=== PATIENT | male | born 1995 | race Two or more races ===

== ENCOUNTER 2021-09-19 20:28 | Emergency (ER) | payer MEDICAID ==
[~2021-09-19] VITALS: Ht 165.1 cm; Wt 59.0 kg
[2021-09-19 21:26] VITALS: BP 124/75
[2021-09-20] MEDS ORDERED: LIDOCAINE 1% HCL (LOCAL ANESTH.) INJ 20ML MDV ID ONE (00:30)
[2021-09-20] MEDS ORDERED: CEPH-509 PO (01:12)
== END 2021-09-20 01:28 | disposition home or self-care (01) ==
LOC: ER 20:28
DX: S61.212A Laceration without foreign body of right middle finger without damage to nail, initial encounter (principal); X58.XXXA Exposure to other specified factors, initial encounter; Y93.89 Activity, other specified; Y92.89 Other specified places as the place of occurrence of the external cause; Y99.8 Other external cause status
CPT/HCPCS: 12001; 73120; 73130; 99284; J2001